=== PATIENT | male | born 1970 | race Caucasian/White ===

== ENCOUNTER 2017-08-06 15:56 | Emergency (ER) | payer OTHER ==
[~2017-08-06] VITALS: Ht 190.5 cm; Wt 154.2 kg
[~2017-08-06 15:56] MED LIST changes: -Amlodipine Bes2.5 MG PO; -Augmentin 875-1 EACH PO; -Flonase 0.05% N16 GM; -METO25
[2017-08-06] MEDS ORDERED: METO25 (16:14)
[2017-08-06] MEDS ORDERED: Amlodipine Bes2.5 MG PO (16:15)
[2017-08-06 16:47] LABS: BASOPHILS PERCENT AUTO 1 % (0-2); EOSINOPHILS PERCENT AUTO 2 % (0-6); Hematocrit 42.9 % (37.0-53.0); Hemoglobin 14.3 g/dL (13.5-17.5); IMMATURE GRAN ABSOLUTE AUTO 0.05 K/mm3 (0.00-0.10); IMMATURE GRAN PERCENT AUTO 1 % (0-1); LYMPHOCYTES ABSOLUTE AUTO 2.49 K/mm3 (0.84-5.20); LYMPHOCYTES PERCENT AUTO 26 % (21-46); MONOCYTES ABSOLUTE AUTO 0.94 K/mm3 (0.16-1.47); MONOCYTES PERCENT AUTO 10 % (4-13); Mean Corpuscular HGB Conc 33.3 g/dL (31.5-36.5); Mean Corpuscular Volume 96 fL (80-100); Mean Platelet Volume 8.9 fL (9.1-12.4); NEUTROPHILS ABSOLUTE AUTO 5.96 K/mm3 (1.96-9.15); NEUTROPHILS PERCENT AUTO 61 % (41-73); Platelet Count 351 K/mm3 (150-400); RDW Standard Deviation 42.5 fL (35.1-46.3); Red Blood Cell Count 4.47 M/mm3 (4.30-5.90); White Blood Cell Count 9.74 K/mm3 (4.00-11.30)
[2017-08-06 17:11] LABS: Troponin I <0.015 ng/mL (0.000-0.040)
[2017-08-06 17:12] LABS: Alanine Aminotransfer (ALT/SGP 27 U/L (12-78); Albumin, Blood 4.1 g/dL (3.4-5.0); Alk Phos 66 U/L (50-136); Anion Gap 3 mmol/L (6-16); Aspartate Aminotrans (AST/SGOT 20 U/L (12-37); Bilirubin, Total 0.2 mg/dL (0.1-1.0); Blood Urea Nitrogen 15 mg/dL (8-24); Bun/Creatinine Ratio 15.6 (12.0-20.0); CO2, Blood 27 mmol/L (21-32); Calcium, Blood 9.5 mg/dL (8.5-10.1); Chloride, Blood 110 mmol/L (98-108); Creatinine, Blood 0.96 mg/dL (0.60-1.20); Globulin, Blood 4.2 g/dL (2.2-4.0); Glomerular Filtration Rate >60 (60-); Glucose, Blood 88 mg/dL (70-99); Sodium, Blood 140 mmol/L (136-145); Total Protein, Blood 8.3 g/dL (6.4-8.2)
[2017-08-06] MEDS ORDERED: Augmentin 875-1 EACH PO (18:54)
[2017-08-06] MEDS ORDERED: Flonase 0.05% N16 GM (18:54)
== END 2017-08-06 19:06 | disposition home or self-care (01) ==
LOC: ER 15:56
PROVIDERS: Physician Assistant
DX: I10 Essential (primary) hypertension (principal); J32.9 Chronic sinusitis, unspecified; Z88.1 Allergy status to other antibiotic agents; Z79.899 Other long term (current) drug therapy; Z79.84 Long term (current) use of oral hypoglycemic drugs; F17.200 Nicotine dependence, unspecified, uncomplicated; I25.2 Old myocardial infarction
CPT/HCPCS: 36415; 71046; 80053; 81000; 83880; 84484; 85025; 93005; 93010; 99284

== ENCOUNTER → 2017-08-06 | Outpatient (CLI) | payer OTHER ==
[~2017-08-06] MED LIST: ACETAMINOPHEN500 MG PO; ALBU90OI INH; ALLO100 PO; Amlodipine Bes2.5 MG PO; Augmentin 875-1 EACH PO; CYCL10 PO; FURO80 PO; Flonase 0.05% N16 GM; GABA300 PO; LEVSOD125 PO; Lasix40 MG PO; METF500 PO; METO25; NITR.6SL SL; PANT40 PO; SERT100 PO; TIOT18 INH; TRAZ50 PO; Toprol Xl25 MG PO; Zofran Odt4 MG PO
== END ==
LOC: LAB SHORT 17:33 → LAB 17:33
DX: H60.91 Unspecified otitis externa, right ear (principal)
CPT/HCPCS: 87070; 87205

== ENCOUNTER → 2018-04-08 | Outpatient (CLI) | payer OTHER ==
[~2018-04-08] MED LIST changes: +Amlodipine Bes2.5 MG PO; +Augmentin 875-1 EACH PO; +Flonase 0.05% N16 GM; +METO25
== END ==
LOC: LAB SHORT 16:13 → LAB SRC 16:13
DX: N45.1 Epididymitis (principal)
CPT/HCPCS: 87086

== ENCOUNTER → 2018-06-08 | Outpatient (CLI) | payer OTHER ==
[2018-06-08 08:25] LABS: BASOPHILS ABSOLUTE AUTO 0.08 K/mm3 (0.00-0.23); BASOPHILS PERCENT AUTO 1 % (0-2); EOSINOPHILS ABSOLUTE AUTO 0.25 K/mm3 (0.00-0.68); EOSINOPHILS PERCENT AUTO 4 % (0-6); Hematocrit 42.5 % (37.0-53.0); Hemoglobin 14.5 g/dL (13.5-17.5); IMMATURE GRAN ABSOLUTE AUTO 0.02 K/mm3 (0.00-0.10); IMMATURE GRAN PERCENT AUTO 0 % (0-1); LYMPHOCYTES ABSOLUTE AUTO 1.83 K/mm3 (0.84-5.20); LYMPHOCYTES PERCENT AUTO 30 % (21-46); MONOCYTES PERCENT AUTO 10 % (4-13); Mean Corpuscular HGB 31.7 pg (26.0-34.0); Mean Corpuscular HGB Conc 34.1 g/dL (31.5-36.5); Mean Corpuscular Volume 93 fL (80-100); Mean Platelet Volume 8.8 fL (9.1-12.4); NEUTROPHILS ABSOLUTE AUTO 3.42 K/mm3 (1.96-9.15); NEUTROPHILS PERCENT AUTO 55 % (41-73); Platelet Count 239 K/mm3 (150-400); RDW Coefficient Variation 12.4 % (11.7-14.2); RDW Standard Deviation 42.4 fL (35.1-46.3); Red Blood Cell Count 4.57 M/mm3 (4.30-5.90)
[2018-06-08 08:46] LABS: Alanine Aminotransfer (ALT/SGP 24 U/L (12-78); Albumin/Globulin Ratio 1.1 (0.8-1.8); Alk Phos 58 U/L (40-126); Anion Gap 9 mmol/L (6-16); Aspartate Aminotrans (AST/SGOT 20 U/L (12-37); Bilirubin, Total 0.3 mg/dL (0.1-1.0); Blood Urea Nitrogen 12 mg/dL (8-24); Bun/Creatinine Ratio 10.9 (12.0-20.0); CO2, Blood 26 mmol/L (21-32); Calcium, Blood 8.8 mg/dL (8.5-10.1); Chloride, Blood 104 mmol/L (98-108); Globulin, Blood 3.7 g/dL (2.2-4.0); Glomerular Filtration Rate >60 (60-); Glucose, Blood 113 mg/dL (70-99); Sodium, Blood 139 mmol/L (136-145); Thyroid Stimulating Hormone 77.791 uIU/mL (0.360-4.800); Total Protein, Blood 7.7 g/dL (6.4-8.2)
== END | disposition home or self-care (01) ==
LOC: LAB SHORT 08:22 → LAB EV 08:22
PROVIDERS: Physician Assistant
DX: F44.89 Other dissociative and conversion disorders (principal)
CPT/HCPCS: 80053; 84443; 85025

== ENCOUNTER → 2022-05-09 | Outpatient (CLI) | payer OTHER ==
[~2022-05-09] MED LIST changes: +AMLO5 PO; -Amlodipine Bes2.5 MG PO; +Aspir 8181 MG PO; +Ativan1 MG PO; +CLON.1 PO; +Desyrel150 MG PO; +Isosorbide Mono30 MG PO; +LEVOTHYROXINE137 MCG PO; -LEVSOD125 PO; +LEVSOD150 PO; +LISI5 PO; +Lipitor10 MG PO; -METO25; +METO50ER PO
== END | disposition home or self-care (01) ==
LOC: LAB SHORT 14:45
DX: R30.0 Dysuria (principal)
CPT/HCPCS: 87077; 87086; 87186